=== PATIENT | female | born 1985 | race Caucasian/White ===

== ENCOUNTER 2023-12-04 13:20 | Outpatient (AMB) | payer OTHER, SELFPAY ==
--- NOTE | 2023-12-04 13:25 | A.OFFVIS_ITS ---
VS Expanded 12/04/23 13:38 Height 5 ft 1 in Weight 136 lb 0.403 oz BMI 25.7 Intake Visit Reasons: Fatigue and weightloss/LVM Nutrition Presentation Details: Pt presents for MNT for weight loss and fatigue. The Pt was referred by PCP, Dr. Gautam Pt reports having lost about 15 lbs in 2-3 months. Pt reports this is since t eeth were extracted, does not wear dentures as they feel uncomfortable to her. Pt feels her weight is appropriate and drinks caffeinated beverages 8-12 /day ,(each is 180 calories with carbs and sodium and 100 mg caffeine) Pt reports having reduced from 18 Reports having breads or crackers or chips throughout the day, not having appetite for meals. BS Monitoring Most Recent Diabetes Results: No Data to Display ZDE-Wevwhox-Go.Jeor Equation Height: 5 ft 1 in Weight: 136 lb Resting Metabolic Rate: 1241.60 Calculated Activity Level: Sedentary Calories Needed to Maintain Weight: 1489.92 Diagnosis Nutrition problem #1: malnutrition As related to (etiology) #1: inadeq diet over 5 days As evidenced by (sign/symptom) #1: food recall (Per recall, Pt consuming 1800- 2100 calories from beverages without protein or minimal protein intake) and knowledge deficit of diet Assessment & Plan Assessment & Plan (1) Weight loss: Code(s): R63.4 - Abnormal weight loss Category: Medical Plan: Incorporate beverages with protein, keeping the same amount of calories with increased nutrients. Wt: 61 Kg ( 11/29 ) Est kcal needs as per 25 kcal/kg bwJ: 1800 (40% carb, 30% protein/fat) Est fluid needs as per 25-30 ml/d: 1800 Est prot per day as per 1 g/kg bw: 61 Recommend fiber intake : 8-10 g per day and gradually increase to 25-28 g per day for women and 35-38 g for men or as tolerated Recommend sodium intake per day : less than 2000 mg Educated patient on: ( R = reviewed V = verbalizes understanding N/R = needs review N/A = not applicable * Food sources of carbohydrate, adequate serving sizes and its role in various health conditions: R V N/R * Differences between complex carbohydrates a simple carbohydrates, role of fiber in diet: R V N/R * protein sources of foods: R * Differences between types of fats and role in diet (mono on saturated fat fatty acids, saturated fatty acids, trans fats): R V N/R * Food sources of sodium in salt and healthy modifications for heart health in kidney health: R V R/V * Vitamins and minerals: R V N/R * Healthy plate method concept balancing meals with protein /carbs/fats: R * Physical activity: Benefits a precaution: R V N/R * REviewed lack of nutrients and fatigue Patient Instructions: Incorporate protein as part of your meals/beverages Have a protein shake 1-2 x/day have 1/2 sand with the beverages your are currently having (eggs/cheese/tuna/chicken /sausage) Coding Level of Care Code Nutr Indiv Intake (87482) Diagnoses Weight loss R63.4 Time Spent (min) 30
[2023-12-04 13:38] VITALS: BMI 25.7
[2023-12-11 12:35] VITALS: BMI 25.7
== END 2023-12-04 13:47 | disposition home or self-care (01) ==
LOC: HO.ENCR 13:20
PROVIDERS: PCP Internal Medicine; Visit Provider Dietitian, Registered
DX: R63.4 Abnormal weight loss (principal)

== ENCOUNTER → 2023-12-04 13:20 | Outpatient (BNVA) | payer OTHER, SELFPAY | PROVIDERS: PCP Internal Medicine; Visit Provider Dietitian, Registered | DX: E46 Unspecified protein-calorie malnutrition (principal); R53.83 Other fatigue; R63.4 Abnormal weight loss; Z71.3 Dietary counseling and surveillance | CPT/HCPCS: 97802 ==

== ENCOUNTER 2024-01-15 13:03 | Outpatient (AMB) | payer OTHER, SELFPAY ==
--- NOTE | 2024-01-15 13:08 | A.OFFVIS_ITS ---
VS Expanded 01/15/24 13:09 Height 5 ft 1 in Weight 130 lb 11.746 oz BMI 24.7 Intake Visit Reasons: monitoring/LVM Nutrition Presentation Details: Pt presents for MNT f/u to monitor weight Pt had recent weight loss of 15 lbs in 2-3 months. Pt reports weight loss was related to teeth extraction and choosing soft foods, in gerenal reducing portions. She does not wear dentures as they feel uncomfortable to her. Reports typically having 3-4 cups of coffee /energy beverages per day and drinking sodas with meals BS Monitoring Most Recent Diabetes Results: No Data to Display Assessment & Plan Assessment & Plan (1) Weight loss: Code(s): R63.4 - Abnormal weight loss Category: Medical Plan: Incorporate beverages with protein, keeping the same amount of calories with increased nutrients. Wt: 61 Kg ( 11/29 ) Est kcal needs as per 25 kcal/kg bwJ: 1800 (40% carb, 30% protein/fat) Est fluid needs as per 25-30 ml/d: 1800 Est prot per day as per 1 g/kg bw: 61 Recommend fiber intake : 8-10 g per day and gradually increase to 25-28 g per day for women and 35-38 g for men or as tolerated Recommend sodium intake per day : less than 2000 mg Educated patient on: ( R = reviewed V = verbalizes understanding N/R = needs review N/A = not applicable * Food sources of carbohydrate, adequate serving sizes and its role in various health conditions: R V N/R * Differences between complex carbohydrates a simple carbohydrates, role of fiber in diet: R V N/R * protein sources of foods: R * Differences between types of fats and role in diet (mono on saturated fat fatty acids, saturated fatty acids, trans fats): R V N/R * Food sources of sodium in salt and healthy modifications for heart health in kidney health: R V R/V * Vitamins and minerals: R V N/R * Healthy plate method concept balancing meals with protein /carbs/fats: R * Physical activity: Benefits a precaution: R V N/R * REviewed lack of nutrients and fatigue Patient Instructions: have milk/leo in place of soda with meals replacing soda, 3 times a day Coding Level of Care Code Nutr Indiv Subseq (12597) Diagnoses Weight loss R63.4 Time Spent (min) 25
[2024-01-15 13:09] VITALS: BMI 24.7
== END 2024-01-15 13:31 | disposition home or self-care (01) ==
PROVIDERS: PCP Internal Medicine; Visit Provider Dietitian, Registered
DX: R63.4 Abnormal weight loss (principal)

== ENCOUNTER → 2024-01-15 13:03 | Outpatient (BNVA) | payer OTHER, SELFPAY | PROVIDERS: PCP Internal Medicine; Visit Provider Dietitian, Registered | DX: R63.4 Abnormal weight loss (principal) | CPT/HCPCS: 97803 ==

== ENCOUNTER 2024-03-04 13:29 | Outpatient (AMB) | payer OTHER, SELFPAY ==
[2024-03-04 13:33] VITALS: BMI 24.9
--- NOTE | 2024-03-04 13:33 | A.OFFVIS_ITS ---
VS Expanded 03/04/24 13:33 Height 5 ft 1 in Weight 132 lb 0.91 oz BMI 24.9 Intake Visit Reasons: monitor weight/LVM Nutrition Presentation Details: Pt presents for MNT f/u underweight Pt reports working on having cereal with milk in the evening Tries not to skip meal in the morning but becomes nauseous thus omits Has 3 redbull iper day not on MVI BS Monitoring Most Recent Diabetes Results: No Data to Display Assessment & Plan Assessment & Plan (1) Weight loss: Code(s): R63.4 - Abnormal weight loss Category: Medical Plan: Incorporate beverages with protein, keeping the same amount of calories with increased nutrients. Wt: 61 Kg ( 11/29 ) Est kcal needs as per 25 kcal/kg bwJ: 1800 (40% carb, 30% protein/fat) Est fluid needs as per 25-30 ml/d: 1800 Est prot per day as per 1 g/kg bw: 61 Recommend fiber intake : 8-10 g per day and gradually increase to 25-28 g per day for women and 35-38 g for men or as tolerated Recommend sodium intake per day : less than 2000 mg Educated patient on: ( R = reviewed V = verbalizes understanding N/R = needs review N/A = not applicable * Food sources of carbohydrate, adequate serving sizes and its role in various health conditions: R V N/R * Differences between complex carbohydrates a simple carbohydrates, role of fiber in diet: R V N/R * protein sources of foods: R * Differences between types of fats and role in diet (mono on saturated fat fatty acids, saturated fatty acids, trans fats): R V N/R * Food sources of sodium in salt and healthy modifications for heart health in kidney health: R V R/V * Vitamins and minerals: R V N/R * Healthy plate method concept balancing meals with protein /carbs/fats: R * Physical activity: Benefits a precaution: R V N/R * REviewed lack of nutrients and fatigue Patient Instructions: Have a protein shake once a day (muscle milk ok ) reducing on one redbull per day consider taking a daily multivitamin Coding Level of Care Code Nutr Indiv Subseq (31354) Diagnoses Weight loss R63.4 Time Spent (min) 30
== END 2024-03-04 14:01 | disposition home or self-care (01) ==
PROVIDERS: PCP Internal Medicine; Visit Provider Dietitian, Registered
DX: R63.4 Abnormal weight loss (principal)

== ENCOUNTER → 2024-03-04 13:29 | Outpatient (BNVA) | payer OTHER, SELFPAY | PROVIDERS: PCP Internal Medicine; Visit Provider Dietitian, Registered | DX: R63.4 Abnormal weight loss (principal) | CPT/HCPCS: 97803 ==

== ENCOUNTER 2024-05-06 12:59 | Outpatient (AMB) | payer OTHER, SELFPAY ==
--- NOTE | 2024-05-06 13:01 | A.OFFVIS_ITS ---
VS Expanded 05/06/24 13:02 Height 5 ft 1 in Weight 128 lb 1.417 oz BMI 24.2 Intake Visit Reasons: monitor weight Nutrition Presentation Details: Pt presents for MNT for weight loss. Pt reports having symptoms of diarrhea for the past month, and cannot tell what is causing it. Pt reports needing to make appt with PCP to f/u on this Pt denies taking laxatives Meals that she may have nothing in AM , but has redbulls or juice (reports having 2-3 redbull/day and having juices throghout the day meals in the evening varies: chicken parm and pasta or shepherds pie or rice/chicken and vegetable, water or juice snacks: plain crackers or cereal, chips taking MIV - no Meds: seboxeme monthly prestique daily omeprazole daily BS Monitoring Most Recent Diabetes Results: No Data to Display Assessment & Plan Assessment & Plan (1) Weight loss: Code(s): R63.4 - Abnormal weight loss Category: Medical Plan: incorporate protein with the snacks , continue working on having nutrient dense beverages Wt: 61 Kg ( 11/29 ) Est kcal needs as per 25 kcal/kg bwJ: 1800 (40% carb, 30% protein/fat) Est fluid needs as per 25-30 ml/d: 1800 Est prot per day as per 1 g/kg bw: 61 Recommend fiber intake : 8-10 g per day and gradually increase to 25-28 g per day for women and 35-38 g for men or as tolerated Recommend sodium intake per day : less than 2000 mg Educated patient on: ( R = reviewed V = verbalizes understanding N/R = needs review N/A = not applicable * Food sources of carbohydrate, adequate serving sizes and its role in various health conditions: R V N/R * Differences between complex carbohydrates a simple carbohydrates, role of fiber in diet: R V N/R * protein sources of foods: R * Differences between types of fats and role in diet (mono on saturated fat fatty acids, saturated fatty acids, trans fats): R V N/R * Food sources of sodium in salt and healthy modifications for heart health in kidney health: R V R/V * Vitamins and minerals: R V N/R * Healthy plate method concept balancing meals with protein /carbs/fats: R * Physical activity: Benefits a precaution: R V N/R * REviewed lack of nutrients and fatigue Patient Instructions: Add protein to the foods you have: example - crackers with tuna or chicken or egg salad or ham/cheese - chocolate with yogurt - chips with chicken salad or tuna salad or peanut butter Keep hydrated by having soups/broth, juices to keep hydrated Coding Level of Care Code Nutr Indiv Subseq (32366) Diagnoses Weight loss R63.4 Time Spent (min) 30
[2024-05-06 13:02] VITALS: BMI 24.2
--- OUTSIDE RECORDS SUMMARY | 2024-05-06 15:07 | XMS_ITS | Patient Health Record ---
[facility] Organization [facility] Address [address] [place] [address] Support Name Relationship Address Phone Dain Mac Emergency Contact [address] [place] [address] Kennsincere Linda Guarantor Unknown Reason For Referral No Information Medications Medication SIG (Take, Route, Frequency, Duration) Notes Start Date End Date Status Gabapentin 300 MG 120 Oral take 1caps for 5nights increase by 1 cap every 5nights until 4caps at nights thereafter for 30 06/23/[address] 60 MG CAP 30 1 po qam for 30 *please review for potential update for e-prescription and drug interaction check* 06/16/2013 Active SUMAVEL DOSEPRO 6 MG/0.5 ML 6 Inject 1 dose q2h prn severe migraine, limit 2 in 24 hours. for 30 *please review for potential update for e-prescription and drug interaction check* 06/16/2013 Active Plan Of Treatment No Information Insurance Providers Payer Name Payer Address Payer Phone Subscriber Number Group Number Insured Name Patient Relationship to Insured Coverage Start Date Coverage End Date [facility] [address] [id number] Linda Nicole Self - patient is the insured Medical (General) History Surgical History Surgery Date(Month/Year) The patient has had no prior surgeries The patient has had no prior surgeries 2013-06-16
--- OUTSIDE RECORDS SUMMARY | 2024-05-06 15:07 | XMS_ITS | Clinical Summary ---
Author Organization [address] Address [address] [place] [phone] Phone Care Team Providers Care Agricultural Appraiser Name Role Phone Bubba Gautam MD Primary Care Provider [phone] Allergies Active Allergy Reactions Criticality Noted Date Comments Amoxicillin Itching 11/04/2009 Azithromycin Wheezing 10/26/2009 Other Reaction(s): OTHER CHEST TIGHTNESS,ABDOMINAL CRAMPS Medications Medication Sig Dispensed Refills Start Date End Date Status desvenlafaxine 50 mg tablet extended release 24 hr Take 50 mg by mouth daily. Active lithium 150 mg capsule TAKE 1 CAPSULE BY MOUTH EVERY NIGHT AT BEDTIME. 11/29/2023 Active nicotine (NICODERM CQ) 21 mg/24 hr APPLY 1 PATCH EVERY DAY BY TRANSDERMAL ROUTE FOR 28 DAYS. 08/20/2023 Active nicotine polacrilex (COMMIT) 4 mg lozenge TAKE 1 LOZENGE BY MOUTH EVERY 2 HOURS 08/20/2023 Active buprenorphine-n aloxone (Suboxone) 8-2 mg per SL film TAKE 2 FILMS SUBLINGUALLY EVERY DAY 11/22/2020 Active SUMAtriptan (IMITREX) 50 mg tablet May repeat dose once after 2 hours, if needed. 06/27/2023 Active omeprazole (PriLOSEC) [address] capsule TAKE 1 CAPSULE BY MOUTH DAILY FOR 360 DAYS. 90 capsule 05/03/2024 Active omeprazole (PriLOSEC) [address] capsule Take 1 Capsule by mouth daily for 360 days. 12/06/2023 Discontinued Active Problems Problem Noted Date Diagnosed Date Chronic constipation 11/30/2016 Migraine 08/16/2008 Overview (03/04/2024): 08/24/19 pt states she was on imitrex and percocet but discontinued both with +HPT Last Assessment & Plan: Explained some women have improvement in , others not. She will continue prn Tylenol. Rx sent for Phenergan to be used sparingly prn. Counseled not to use with driving as can cause significant sedation. Best to take QHS prn. She agreed. Tobacco use disorder 12/03/2006 Overview (03/04/2024): 08/24/19 pt is cutting down from a 1PPD habit to 1/2 PPD habit Last Assessment & Plan: Encouraged cessation. Discussed risks of abruption, IUFD, IUGR. She will try. Immunizations Name Administration Dates Next Due DTP 07/10/1993, 2,08/06/1990,1987,04/08/1987 H1N1 Inj Preservative Free 03/23/2009 HPV, Quadrivalent 01/09/2007,08/30/2006,07/09/19 07 Hepatitis B (Bzvvidt-H-Yrutd , Recombivax HB-Adult) 19yo and older 07/07/1998,12/24/1997,11/25/1997 HiB 11/06/1990 Influenza trivalent, 0.5mL, preservative free (Fluarix; FluLaval; Fluzone) ages 6mo and older (Afluria) 3 years and older 12/30/2014,01/10/2012,01/08/2011,2009,12/26/2007,03/28/2006,02/10/2005 Influenza, Unspecified 01/03/2018,02/01/2016 MMR, measles mumps and rubel la Live (Priorix; M-M-R II) 12mo and older 11/06/1997,08/06/1990 OPV 07/10/1993, 2,08/06/1990,1987,04/08/1987 Td Tetanus diptheria (Tdvax) 7yo and older 11/25/1997 Tdap Tetanus diptheria acell ular pertussis (Boostrix; Adacel) 7yo and older 09/16/2014,09/12/2009 Varicella live (Varivax) 12m o and older 04/08/1990 Surgical History Surgery Date Site/Laterality Comments FLEXIBLE SIGMOIDOSCOPY 01/06/2007 PROCEDURE: MT SIGMOIDOSCOPY FLX DX W/COLLJ SPEC BR/WA IF PFRMD; COMMENT: internal and external hemorrhoids CERVICAL BIOPSY W/ LOOP ELECTRODE EXCISION 07/10/2012 PROCEDURE: MT CONIZATION CERVIX W/WO D&C RPR ELTRD EXC; COMMENT: VALDO 3 Medical History Medical History Date Comments Abnormal Pap smear of cervix DX: Abnormal Pap smear of cervix Genital HSV DX:Genital HSV Chronic constipation 11/30/2016 DX:Chronic constipation Atypical chest pain 06/01/2014 DX:Atypical chest pain 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 Pap smears normal after that until HGSIL again 2012. Colpo 06/02/12 - VALDO 3, LEEP done 07/10/2012. Pap 01/29/13: negative ECC done 03/17/13 - negative. Repeat pap in 6 months, was done 04/2013 and normal. Family History Medical History Relation Name Comments Cirrhosis Father hepatitis/EtOH abuse Heart attack Maternal Grandfather Suicide Attempts Maternal Grandmother Breast cancer Mother age 40's/unila teral; skin cancer (?type); depression Heart attack Paternal Grandfather Other: COVID-19 Paternal Grandmother Other: PCOS Sister x 3 brain cysts? Relation Name Status Comments Father Maternal Grandfather Maternal Grandmother Mother Alive Paternal Grandfather Paternal Grandmother Sister x 3 Alive Social History Tobacco Use Types Packs/Day Years Used Date Smoking Tobacco: Every Day Smokeless Tobacco: Current Alcohol Use Standard Drinks/Week Comments No 0 (1 standard drink = 0.6 oz pur e alcohol) Sex and Gender Information Value Date Recorded Sex Assigned at Not on file Gender Identity Not on file Sexual Orientation Not on file Job Start Date Occupation Industry Not on file Not on file Not on file Obstetrics History Last Filed Vital Signs Vital Sign Reading Time Taken Comments Blood Pressure 88/62 12/06/2023 1:23 PM EDT Pulse 97 12/06/2023 1:23 PM EDT Temperature - - Respiratory Rate - - Oxygen Saturation - - Inhaled Oxygen Concentration - - Weight 61.6 kg (135 lb 14.4 oz) 12/06/2023 1:23 PM EDT Height 154.9 cm (5' 1 ) 08/08/2023 10:3 4 AM EDT Body Mass Index 25.68 08/08/2023 10:34 AM EDT Plan of Treatment Health Maintenance Due Date Last Done Comments Pneumococcal Vaccine: Pediatrics (0 to 5 Years) and At-Risk Patients (6 to 64 Years) (1 of 2 - PCV) 1992 Social Influencers of Health Screening 03/11/2022 Cervical Cancer Screening: HPV 08/02/2023 08/01/2018 COVID-19 Vaccine ( season) 2023 Influenza Vaccine (#1) 2023 8, 02/01/2016, 12/30/2014, Additional history exists DTaP,Tdap,and Td Vaccines (8 - Td or Tdap) 09/16/2024 09/16/2014, 09/12/2009, 11/25/1997, Additional history exists Depression Screening 12/05/2024 12/06/2023 Cholesterol Screening (Lipid Panel) 06/27/2028 06/28/2023 Varicella Vaccines Aged Out 04/08/1990 No longer eligible based on patient's age to complete this topic HIB Vaccines Completed 11/06/1990, 11/06/1990 IPV Vaccines Completed 07/10/1993, 01/07, 11/06/1990, Additional history exists MMR Vaccines Completed 11/06/1997, 08/06/1990 Hepatitis B Vaccines Completed 07/07/1998, 12/24/1997, 11/25/1997 HPV Vaccines Completed 01/09/2007, 08/07, 07/08/2006 HIV Screening Completed 08/27/2019 Hepatitis C Screening Completed 08/27/2019 Hepatitis A Vaccines Aged Out No long er eligible based on patient's age to complete this topic Meningococcal ACWY Vaccine Aged Out N o longer eligible based on patient's age to complete this topic RSV Immunization Patients Under 20 months Aged Out No longer eligible based on patient's age to complete this topic Procedures Procedure Name Priority Date/Time Associated Diagnosis Comments HM DEPRESSION SCREENING Routine 12/06/2023 LIPID PANEL Routine 06/28/2023 HEPATITIS C SCREENING Routine 08/27/2019 HIV SCREENING Routine 08/27/2019 HPV Routine 08/01/2018 from Last 3 Months or Most Recently Relevant to Health Maintenance Results * Depression Screening (12/06/2023) Pathologist [facility] Depression Screening Abstracted Historical Provider MD YOLANDA Sin * (ABNORMAL) Lipid panel (06/28/2023) [facility] LDL/HDL Ratio 7(A) 0 - 4 Triglycerides 116 0 - 150 mg/dL Cholesterol 233(A) 0 - 200 mg/dL HDL 32(A) 40 mg/dL LDL Cholesterol 178(A) 0 - 100 mg/dL Blood Venous blood specimen / Unknown Historical Provider LAB BLOOD ORDERAB LES * HIV Screening (08/27/2019) Pathologist [facility] HIV Screening Abstracted Historical Provider MD YOLANDA VALDEZ E * Hepatitis C Screening (08/27/2019) Pathologist [facility] Hepatitis C Screening Abstracted Historical Provider MD YOLANDA VALDEZ E * Cervical Cancer Screening: HPV (08/01/2018) Pathologist [facility] Cervical Cancer Screening: HPV Abstracted ,Negative Historical Provider MD YOLANDA Sin from Last 3 Months or Most Recently Relevant to Health Maintenance Care Teams Agricultural Appraiser Relationship Specialty Start Date End Date Bubba Gautam MD [address] [place] [id number] PCP - General 01/15/06
== END 2024-05-06 13:29 | disposition home or self-care (01) ==
PROVIDERS: PCP Internal Medicine; Visit Provider Dietitian, Registered
DX: R63.4 Abnormal weight loss (principal)

== ENCOUNTER → 2024-05-06 12:59 | Outpatient (BNVA) | payer OTHER, SELFPAY | PROVIDERS: PCP Internal Medicine; Visit Provider Dietitian, Registered | DX: R63.4 Abnormal weight loss (principal); Z71.3 Dietary counseling and surveillance | CPT/HCPCS: 97803 ==

== ENCOUNTER 2024-06-04 13:02 | Outpatient (AMB) | payer OTHER, SELFPAY ==
--- NOTE | 2024-06-04 13:04 | A.OFFVIS_ITS ---
VS Expanded 06/04/24 13:11 Height 5 ft 1 in Weight 127 lb 13.89 oz BMI 24.2 Intake Visit Reasons: monitor weight Nutrition Presentation Details: Pt presents for MNT f/u for weight loss Pt reports continuing to have 2pack a day of cigarette , + weed Reports working on increasing food intake b:likes oatmeal makes it with water L: sandwich with chips, red bull d: spaghetti/meatballs , juice has not had the protein shakes as of yet Pt reports recently dx with COPD BS Monitoring Most Recent Diabetes Results: No Data to Display Assessment & Plan Assessment & Plan (1) Weight loss: Code(s): R63.4 - Abnormal weight loss Category: Medical Plan: incorporate protein with the snacks , continue working on having nutrient dense beverages Wt: 61 Kg ( 11/29 ), 58 kg (06/02) Est kcal needs as per 25 kcal/kg bwJ: 1800 (40% carb, 30% protein/fat) Est fluid needs as per 25-30 ml/d: 1800 Est prot per day as per 1 g/kg bw: 61 Recommend fiber intake : 8-10 g per day and gradually increase to 25-28 g per day for women and 35-38 g for men or as tolerated Recommend sodium intake per day : less than 2000 mg Educated patient on: ( R = reviewed V = verbalizes understanding N/R = needs review N/A = not applicable * Food sources of carbohydrate, adequate serving sizes and its role in various health conditions: R V N/R * Differences between complex carbohydrates a simple carbohydrates, role of fiber in diet: R V N/R * protein sources of foods: R * Differences between types of fats and role in diet (mono on saturated fat fatty acids, saturated fatty acids, trans fats): R V N/R * Food sources of sodium in salt and healthy modifications for heart health in kidney health: R V R/V * Vitamins and minerals: R V N/R * Healthy plate method concept balancing meals with protein /carbs/fats: R * Physical activity: Benefits a precaution: R V N/R * REviewed lack of nutrients and fatigue Patient Instructions: * make hot cereals with whole milk instead of water * Have milkshake (1 c whole milk with peanut butter and ice cream ) once a day in addition to your meals * Contiue working on including protein in your meals /snacks and choosing nutrient dense beverages (milk, juices, shakes) Coding Level of Care Code Nutr Indiv Subseq (58336) Diagnoses Weight loss R63.4 Time Spent (min) 20
[2024-06-04 13:11] VITALS: BMI 24.2
--- OUTSIDE RECORDS SUMMARY | 2024-06-04 15:32 | XMS_ITS | Encounter Summary ---
Author Organization [facility] Address [id number] [place] [phone] Care Team Providers Care Home Health Nurse Name Role Phone Bubba Gautam MD Primary Care Provider [phone] Reason for Referral * Imaging (Routine) - Closed Specialty Diagnoses / Procedures Referred By Esme henriquez Referred To Contact Radiology Diagnoses Weight loss Lower abdominal pain Procedures CT Abdomen Pelvis wo Contrast Lisbeth Olvera PA [address] [place] [address] Phone: tel: fax: CT Scan - [address] Phone: tel: fax: Referral ID Status Reason Start Date Expiration Date Visits Re quested Visits Authorized [id number] Closed 05/12/2024 07/11/2024 1 1 Reason for Visit * Imaging (Routine) - Closed Specialty Diagnoses / Procedures Referred By Esme henriquez Referred To Contact Radiology Diagnoses Weight loss Lower abdominal pain Procedures CT Abdomen Pelvis wo Contrast Lisbeth Olvera PA [address] [place] [address] Phone: tel: fax: CT Scan - [address] Phone: tel: fax: Referral ID Status Reason Start Date Expiration Date Visits Re quested Visits Authorized [id number] Closed 05/12/2024 07/11/2024 1 1 Encounter Details Date Type Department Care Team (Latest Contact Info) Description 05/18/2024 11:30 AM EST - 05/18/2024 11:59 PM [facility] Hospital [place] [phone] Weight loss; Lower abdominal pain Discharge Disposition: Home or Self Care Social History Tobacco Use Types Packs/Day Years Used Date Smoking Tobacco: Every Day Smokeless Tobacco: Current Alcohol Use Standard Drinks/Week Comments No 0 (1 standard drink = 0.6 oz pur e alcohol) Housing Instability Answer Date Recorde d Are you worried that in the next 2 months you may not have stable housing? No 05/08/2024 Food Access & Nutrition Answer Date Rec orded Do you have access to a vari ety of food including fruits and vegetables? Yes 05/08/2024 Access to Healthcare Answer Date Record ed Within the last 3 months, ho w many times did you visit the emergency department for your medical care? 0 05/08/2024 Health Literacy Answer Date Recorded How often do you need to hav e someone help you when you read instructions, pamphlets, or other written material from your doctor or pharmacy? Never 05/08/2024 Caregiver: How often do you need to have someone help you when you read instructions, pamphlets, or other written material from your doctor or pharmacy? Not on file 05/08/2024 Financial Risk Answer Date Recorded How hard is it for you to pa y for the very basics like food, housing, medical care, and air conditioning / heating? Not very hard 05/08/2024 Transportation Answer Date Recorded Has the lack of transportati on kept you from meetings, work, or from getting things needed for daily living? No Has the lack of transportati on kept you from medical appointments or from getting medications? No 05/08/2024 Social Isolation Answer Date Recorded How often do you feel lonely or isolated from th ose around you? Never 05/08/2024 Food Risk Answer Date Recorded Within the past 12 months we worried whether our food would run out before we got money to buy more. Never true 05/08/2024 Within the past 12 months th e food we bought just didn't last and we didn't have money to get more. Never true 05/08/2024 Dependent Care Answer Date Recorded Do you need help finding or paying for care for your loved ones. For example, child development teacher or elderly care for an older adult? No 05/08/2024 Education Answer Date Recorded Do you think completing more education or training, like finishing a GED, going to college, or learning a trade, would be helpful for you? No 05/08/2024 Employment and Income Answer Date Recor ded During the last four weeks, have you been actively looking for work? No 05/08/2024 Living Situation Answer Date Recorded What is your living situation? 0 05/08/2024 Comments Unknown Sex and Gender Information Value Date Recorded Sex Assigned at Not on file Legal Sex Female 4:40 AM EST Gender Identity Not on file Sexual Orientation Not on file documented as of this encounter Medications at Time of Discharge buprenorphine-na loxone (Suboxone) 8-2 mg per SL film TAKE 2 FILMS SUBLINGUALLY EVERY DAY 11/22/2020 desvenlafaxine 50 mg tablet extended release 24 hr Take 50 mg by mouth daily. omeprazole (PriLOSEC) [address] capsule TAKE 1 CAPSULE BY MOUTH DAILY FOR 360 DAYS. 90 capsule 05/03/2024 ergocalciferol (VITAMIN D-2) 1,250 mcg (50,000 unit) capsule Take 1 capsule (50,000 Units total) by mouth 1 (one) time per week. 12 capsule 05/08/2024 SUMAtriptan (IMITREX) 50 mg tablet May repeat dose once after 2 hours, if needed. 06/27/2023 5 documented as of this encounter Discharge Disposition Disposition Code Departure Means Destination Home or Self Care documented in this encounter Plan of Treatment Upcoming Encounters Date Type Department Care Team (Late st Contact Info) Description 06/08/2024 11:30 AM EST Ancillary Procedure Pulmonolgy - [address] [phone] Christine Morales 06/09/2024 3:20 PM EST Office Visit Gastroenterology - [address] [phone] Mary Marin, [facility] [address] [address] 06/11/2024 10:00 AM EST Consult Pulmonolgy - [place] [address] [phone] Larissa Cox MD [address] [address] 06/30/2024 3:30 PM EDT Appointment Radiology Department - [address] [phone] 07/07/2024 11:30 AM EDT Office Visit Adult Medicine [address] [phone] Nikky Arredondo PA [address] [place] [address] documented as of this encounter Procedures Procedure Name Priority Date/Time Associated Diagnosis Comments CT ABDOMEN PELVIS WO CONTRAST Routine 05/18/2024 11:41 AM EST Weight loss Lower abdominal pain documented in this encounter Results * CT Abdomen Pelvis wo Contrast (05/18/2024 11:41 AM EST) Anatomical Region Laterality Modality Body Computed Tomogra phy 05/18/2024 12:3 2 PM EST Impressions 05/18/2024 11:52 PM EST Bilateral poorly defined centrilobular groundglass pulmonary nodules which can be seen with respiratory bronchiolitis. ??Hypersensitivity pneumonitis included in the differential. Few stable small bilateral pulmonary nodules. No evidence of an acute abdominal or pelvic process. 3.6 cm right ovarian cyst is probably physiologic. ??Recommend follow-up pelvic ultrasound in 6-8 weeks. POS - [id number] -------- FINAL REPORT -------- Dictated By: Sangita Ludwig Dictated Date: 05/18/2024 12:32 ET Assigned Physician: Sangita Ludwig Reviewed and Electronically Signed By: Sangita Ludwig Signed Date: 05/18/2024 23:52 ET Workstation ID: [id number] Transcribed By: Self Edit Transcribed Date: 05/18/2024 14:02 ET Narrative 05/18/2024 11:52 PM EST EXAM: CT chest, abdomen, and pelvis HISTORY: Cough, weight loss, abdominal pain. ??History of tobacco use. ??Nondiagnostic x-ray. COMPARISON: CT chest, abdomen, and pelvis 05/16/2020 TECHNIQUE: CT of the chest, abdomen, and pelvis with oral and without intravenous contrast. Coronal and sagittal reformatted images were generated. The radiation dose total CTDIvol: 9.1 mGy. FINDINGS: Limited assessment of solid organs without IV contrast. ?? CT CHEST: Lungs/pleura: Lungs are hyperinflated. ??Mild centrilobular emphysema. ??Bilateral upper lobe predominant subtle poorly defined centrilobular groundglass nodules. ??Stable 5 x 5 mm nodule in the right middle lobe image 169 and stable 4 mm nodule along the inferior left major fissure image 202. ??No new nodule detected. ??No mass or infiltrate. ??Trachea and central airways are patent. ??No pleural effusions. Lymph nodes/mediastinum: Sensitivity for lymphadenopathy is limited without IV contrast. ??Subcentimeter mediastinal lymph nodes. ??No definite enlarged hilar lymph nodes. ??Stable soft tissue density in the anterior mediastinum which likely represents remnant thymic tissue. Cardiovascular: Heart is not enlarged. ??No pericardial effusion. No thoracic aortic aneurysm. Soft tissues: Thyroid gland is not enlarged. No esophageal abnormality. Bones: Mild degenerative changes in the spine. ??Multilevel endplate Schmorl's nodes. ??No destructive bone lesion. CT ABDOMEN AND PELVIS: Liver: No abnormality detected. Gallbladder/biliary tree: No calcified gallstones or pericholecystic inflammatory change. ??No biliary ductal dilatation. Spleen: No abnormality detected. Pancreas: No abnormality detected. Adrenal glands: No masses. Kidneys/ureters: ??No hydronephrosis or perinephric fat stranding. ??No renal stones. ??No definite ureteral stones. Vasculature: No abdominal aortic aneurysm. ?? Peritoneum: No evidence of free intraperitoneal air, free fluid, or organized collection. Lymph nodes: No lymphadenopathy detected. Bowel: No evidence of a bowel obstruction. ??No bowel inflammatory changes. ??Normal appendix. Body wall: Small fat-containing umbilical hernia which is partially obscured by streak artifact from umbilical jewelry. ??Nodular soft tissue densities and a few foci of subcutaneous emphysema in the subcutaneous tissues of the anterior abdominal wall, likely related to medication injection sites. Bladder: Decompressed, which limits assessment. Reproductive: No definite uterine abnormality. ??Right ovarian cyst measuring up to 3.6 cm. ??No left adnexal abnormality identified. Bones: No compression deformities. Spina bifida occulta of T12 and L1 again noted. ??No destructive bone lesion. Procedure Note Sangita Ludwig MD - 05/18/2024 EXAM: CT chest, abdomen, and pelvis HISTORY: Cough, weight loss, abdominal pain. History of tobacco use.Nondiagnostic x-ray. COMPARISON: CT chest, abdomen, and pelvis 05/16/2020 TECHNIQUE: CT of the chest, abdomen, and pelvis with oral and withoutintravenous contrast. Coronal and sagittal reformatted images weregenerated. The radiation dose total CTDIvol: 9.1 mGy. FINDINGS: Limited assessment of solid organs without IV contrast. CT CHEST: Lungs/pleura: Lungs are hyperinflated. Mild centrilobular emphysema.Bilateral upper lobe predominant subtle poorly defined centrilobulargroundglass nodules. Stable 5 x 5 mm nodule in the right middle lobeimage 169 and stable 4 mm nodule along the inferior left major fissureimage 202. No new nodule detected. No mass or infiltrate. Trachea andcentral airways are patent. No pleural effusions. Lymph nodes/mediastinum: Sensitivity for lymphadenopathy is limitedwithout IV contrast. Subcentimeter mediastinal lymph nodes. No definiteenlarged hilar lymph nodes. Stable soft tissue density in the anteriormediastinum which likely represents remnant thymic tissue. Cardiovascular: Heart is not enlarged. No pericardial effusion. Nothoracic aortic aneurysm. Soft tissues: Thyroid gland is not enlarged. No esophageal abnormality. Bones: Mild degenerative changes in the spine. Multilevel endplateSchmorl's nodes. No destructive bone lesion. CT ABDOMEN AND PELVIS: Liver: No abnormality detected. Gallbladder/biliary tree: No calcified gallstones or pericholecysticinflammatory change. No biliary ductal dilatation. Spleen: No abnormality detected. Pancreas: No abnormality detected. Adrenal glands: No masses. Kidneys/ureters: No hydronephrosis or perinephric fat stranding. Norenal stones. No definite ureteral stones. Vasculature: No abdominal aortic aneurysm. Peritoneum: No evidence of free intraperitoneal air, free fluid, ororganized collection. Lymph nodes: No lymphadenopathy detected. Bowel: No evidence of a bowel obstruction. No bowel inflammatory changes.Normal appendix. Body wall: Small fat-containing umbilical hernia which is partiallyobscured by streak artifact from umbilical jewelry. Nodular soft tissuedensities and a few foci of subcutaneous emphysema in the subcutaneoustissues of the anterior abdominal wall, likely related to medicationinjection sites. Bladder: Decompressed, which limits assessment. Reproductive: No definite uterine abnormality. Right ovarian cystmeasuring up to 3.6 cm. No left adnexal abnormality identified. Bones: No compression deformities. Spina bifida occulta of T12 and [id number] noted. No destructive bone lesion. IMPRESSION: Bilateral poorly defined centrilobular groundglass pulmonary nodules whichcan be seen with respiratory bronchiolitis. Hypersensitivity pneumonitisincluded in the differential. Few stable small bilateral pulmonary nodules. No evidence of an acute abdominal or pelvic process. 3.6 cm right ovarian cyst is probably physiologic. Recommend follow-uppelvic ultrasound in 6-8 weeks. POS - [id number] -------- FINAL REPORT -------- Dictated By: Sangita Ludwig Dictated Date: 05/18/2024 12:32 ET Assigned Physician: Sangita Ludwig Reviewed and Electronically Signed By: Sangita Ludwig Signed Date: 05/18/2024 23:52 ET Workstation ID: [id number] Transcribed By: Self Edit Transcribed Date: 05/18/2024 14:02 ET us Lisbeth Wade ETIENNE IMG CT PROCEDURES Final Result documented in this encounter Visit Diagnoses Diagnosis Weight loss Loss of weight Lower abdominal pain Abdominal pain, other specified site documented in this encounter Care Teams Home Health Nurse Relationship Specialty Start Date End Date Bubba Gautam MD [address] [place] [id number] PCP - General 01/15/06 documented as of this encounter
--- OUTSIDE RECORDS SUMMARY | 2024-06-04 15:32 | XMS_ITS | Clinical Summary ---
Author Organization [facility] [address] [place] [address] [place] [phone] Phone Care Team Providers Care Collar Runner Name Role Phone Bubba Gautam MD Primary Care Provider [phone] Allergies Active Allergy Reactions Criticality Noted Date Comments Amoxicillin Itching 11/04/2009 Azithromycin Wheezing 10/26/2009 Other Reaction(s): OTHER CHEST TIGHTNESS,ABDOMINAL CRAMPS Medications desvenlafaxin e 50 mg tablet extended release 24 hr Take 50 mg by mouth daily. Active buprenorphine -naloxone (Suboxone) 8-2 mg per SL film TAKE 2 FILMS SUBLINGUALLY EVERY DAY 11/23/19 21 Active omeprazole (PriLOSEC) [address] capsule TAKE 1 CAPSULE BY MOUTH DAILY FOR 360 DAYS. 90 capsule 05/03/19 25 Active ergocalcifero l (VITAMIN D-2) 1,250 mcg (50,000 unit) capsule TAKE 1 CAPSULE (50,000 UNITS TOTAL) BY MOUTH ONCE WEEKLY 12 capsule 05/26/19 25 Active SUMAtriptan (IMITREX) 50 mg tablet Take 1 tablet (50 mg total) by mouth if needed for migraine (MAY REPEAT DOSE AFTER 2 HOURS, IF NEEDED.). 7 tablet 5 05/27/19 25 Active lithium 150 mg capsule TAKE 1 CAPSULE BY MOUTH EVERY NIGHT AT BEDTIME. 11/29/19 24 025 Discontinued(P atient Discharge) nicotine (NICODERM CQ) 21 mg/24 hr APPLY 1 PATCH EVERY DAY BY TRANSDERMAL ROUTE FOR 28 DAYS. 08/20/19 24 025 Discontinued(P atient Discharge) nicotine polacrilex (COMMIT) 4 mg lozenge TAKE 1 LOZENGE BY MOUTH EVERY 2 HOURS 08/20/19 24 025 Discontinued(P atient Discharge) SUMAtriptan (IMITREX) 50 mg tablet May repeat dose once after 2 hours, if needed. 06/27/19 24 025 Discontinued ergocalcifero l (VITAMIN D-2) 1,250 mcg (50,000 unit) capsule Take 1 capsule (50,000 Units total) by mouth 1 (one) time per week. 12 capsule 05/08/19 25 025 Discontinued Active Problems Problem Noted Date Diagnosed [...] of abruption, IUFD, IUGR. She will try. Encounters Date Type Department Care Team Description 05/18/2024 11:34 AM EST - 05/18/2024 11:59 PM [facility] Hospital Encounter CT Scan - [address] [phone] Weight loss; Chronic cough; Tobacco use disorder Discharge Disposition: Home or Self Care 05/18/2024 11:30 AM EST - 05/18/2024 11:59 PM EST Hospital Encounter CT Scan - [address] [phone] Weight loss; Lower abdominal pain Discharge Disposition: Home or Self Care 05/08/2024 12:45 PM EST Office Visit Adult Medicine [address] [phone] Lisbeth Olvera PA Weight loss (Primary Dx); Chronic cough; Tobacco use disorder; Vitamin D deficiency; Lower abdominal pain; Diarrhea, unspecified type; Chalazion left lower eyelid from Last 3 Months Immunizations Name Administration Dates Next Due DTP 07/10/1993, 2,08/06/1990,1987,04/08/1987 H1N1 Inj Preservative Free 03/23/2009 HPV, Quadrivalent 01/09/2007,08/30/2006,07/09/19 07 Hepatitis B (Zmjbocn-G-Oscjk , Recombivax HB-Adult) 19yo and older 07/07/1998,12/24/1997,11/25/1997 [...] Date Site/Laterality Comments FLEXIBLE SIGMOIDOSCOPY 01/06/2007 PROCEDURE: IL SIGMOIDOSCOPY FLX DX W/COLLJ SPEC BR/WA IF PFRMD; COMMENT: internal and external hemorrhoids CERVICAL BIOPSY W/ LOOP ELECTRODE EXCISION 07/10/2012 PROCEDURE: IL CONIZATION CERVIX W/WO D&C RPR ELTRD EXC; [...] Smoking Tobacco: Every Day Smokeless Tobacco: Current Tobacco Cessation:Ready to Q uit: Not Asked; Counseling Given: Not Answered Alcohol Use Standard Drinks/Week Comments No 0 [...] for your loved ones. For example, child care cook or elderly care for an older adult? [...] on file Sexual Orientation Not on file Obstetrics History Last Filed Vital Signs Vital Sign Reading Time Taken Comments Blood Pressure 100/60 05/08/2024 1:14 PM EST Pulse 106 05/08/2024 1:14 PM EST Temperature 36.4 ??C (97.6 ??F) 05/08/2024 1:14 PM ES T Respiratory Rate 15 05/08/2024 1:14 PM EST Oxygen Saturation - - Inhaled Oxygen Concentration - - Weight 57.8 kg (127 lb 6.4 oz) 05/08/2024 1:14 P M EST Height 154.9 cm (5' 1 ) 05/08/2024 1:14 PM EST Body Mass Index 24.07 05/08/2024 1:14 PM EST Plan of Treatment Upcoming Encounters Date Type Department Care Team (Late st Contact Info) Description 06/08/2024 11:30 AM EST Ancillary Procedure Pulmonolgy - [place] [address] [phone] Andrew Christine 06/09/2024 3:20 PM EST Office Visit Gastroenterology - [address] [phone] Mary Marin NP [address] [address] 06/11/2024 10:00 AM EST Consult Pulmonolgy [address] [phone] Larissa Cox MD [address] [address] 06/30/2024 3:30 PM EDT Appointment Radiology Department - [address] [phone] 07/07/2024 11:30 AM EDT Office Visit Adult Medicine [address] [phone] Nikky Arredondo PA [address] [place] [address] Health Maintenance Due Date Last Done Comments Pneumococcal Vaccine: Pediatrics (0 to 5 Years) and At-Risk Patients (6 to 64 Years) (1 of 2 - PCV) 2005 Cervical Cancer Screening: HPV 08/02/2023 08/01/2018 COVID-19 Vaccine (1 - season) 2023 Influenza Vaccine (#1) 2023 8, 01/23/2017, 02/01/2016, Additional history exists DTaP,Tdap,and Td Vaccines (8 - Td or Tdap) 09/16/2024 09/16/2014, 09/12/2009, 11/25/1997, Additional history exists Depression Screening 12/05/2024 12/06/2023 Social Influencers of Health Screening 05/08/2025 05/08/2024 Cholesterol Screening (Lipid Panel) 06/27/2028 06/28/2023 Varicella Vaccines Aged Out 04/08/1990 No longer eligible based on patient's age to complete this topic HIB Vaccines Completed 11/06/1990, 11/06/1990 IPV Vaccines Completed 07/10/1993, 01/07, 11/06/1990, Additional history exists MMR Vaccines Completed 11/06/1997, 08/06/1990 Hepatitis B Vaccines Completed 07/07/1998, 12/24/1997, 11/25/1997 HPV Vaccines Completed 01/09/2007, 08/07, 07/08/2006 HIV Screening Completed 05/08/2024, 08/27/2019 Hepatitis C Screening Completed 05/08/2024, 020 Hepatitis A Vaccines Aged Out No long er eligible based on patient's age to complete this topic Meningococcal ACWY Vaccine Aged Out N o longer eligible based on patient's age to complete this topic Meningococcal B Vacine Aged Out No lo nger eligible based on patient's age to complete this topic RSV Immunization Patients Under 20 months Aged Out No longer eligible based on patient's age to complete this topic Procedures Procedure Name Priority Date/Time Associated Diagnosis Comments CT ABDOMEN PELVIS WO CONTRAST Routine 05/18/2024 11:41 AM EST Weight loss Lower abdominal pain CT CHEST WO CONTRAST Routine 05/18/2024 11:40 AM EST Weight loss Chronic cough Tobacco use disorder CBC WITH AUTO DIFFERENTIAL Routine 05/08/2024 2:16 PM EST Weight loss HIV 1, 2 ANTIBODY, P24 ANTIGEN WITH REFLEX TO DIFFERENTIATION Routine 05/08/2024 2:16 PM EST Weight loss VITAMIN D 25 HYDROXY Routine 05/08/2024 2:16 PM EST Vitamin D deficiency CBC AND DIFFERENTIAL Routine 05/08/2024 2:16 PM EST Weight loss COMPREHENSIVE METABOLIC PANEL Routine 05/08/2024 2:16 PM EST Weight loss HEPATITIS C ANTIBODY Routine 05/08/2024 2:16 PM EST Weight loss HM DEPRESSION SCREENING Routine 12/06/2023 LIPID PANEL Routine 06/28/2023 HM HPV Routine 08/01/2018 from Last 3 Months or Most Recently Relevant to Health Maintenance Results * CT Abdomen Pelvis wo Contrast [...] pelvic ultrasound in 6-8 weeks. POS - [id number] -------- FINAL REPORT -------- Dictated By: Sangita Ludwig Dictated Date: 05/18/2024 12:32 ET Assigned Physician: Sangita Ludwig Reviewed and Electronically Signed By: Sangita Ludwig Signed Date: 05/18/2024 23:52 ET Workstation ID: [id number] Transcribed By: Self Edit Transcribed Date: 05/18/2024 [...] deformities. Spina bifida occulta of T12 and S0ekwbq noted. No destructive bone lesion. IMPRESSION: Bilateral poorly defined centrilobular groundglass pulmonary nodules whichcan be seen with respiratory bronchiolitis. Hypersensitivity pneumonitisincluded in the differential. Few stable small bilateral pulmonary nodules. No evidence of an acute abdominal or pelvic process. 3.6 cm right ovarian cyst is probably physiologic. Recommend follow-uppelvic ultrasound in 6-8 weeks. POS - [id number] -------- FINAL REPORT -------- Dictated By: Sangita Ludwig Dictated Date: 05/18/2024 12:32 ET Assigned Physician: Sangita Ludwig Reviewed and Electronically Signed By: Sangita Ludwig Signed Date: 05/18/2024 23:52 ET Workstation ID: [id number] Transcribed By: Self Edit Transcribed Date: 05/18/2024 14:02 ET us Lisbeth Wade ETIENNE IMG CT PROCEDURES Final Result * CT Chest wo Contrast (05/18/2024 11:40 AM EST) Anatomical Region Laterality Modality Body [...] pelvic ultrasound in 6-8 weeks. POS - [id number] -------- FINAL REPORT -------- Dictated By: Sangita Ludwig Dictated Date: 05/18/2024 12:32 ET Assigned Physician: Sangita Ludwig Reviewed and Electronically Signed By: Sangita Ludwig Signed Date: 05/18/2024 23:52 ET Workstation ID: [id number] Transcribed By: Self Edit Transcribed Date: 05/18/2024 [...] deformities. Spina bifida occulta of T12 and K1ggvxd noted. No destructive bone lesion. IMPRESSION: Bilateral poorly defined centrilobular groundglass pulmonary nodules whichcan be seen with respiratory bronchiolitis. Hypersensitivity pneumonitisincluded in the differential. Few stable small bilateral pulmonary nodules. No evidence of an acute abdominal or pelvic process. 3.6 cm right ovarian cyst is probably physiologic. Recommend follow-uppelvic ultrasound in 6-8 weeks. POS - [id number] -------- FINAL REPORT -------- Dictated By: Sangita Ludwig Dictated Date: 05/18/2024 12:32 ET Assigned Physician: Sangita Ludwig Reviewed and Electronically Signed By: Sangita Ludwig Signed Date: 05/18/2024 23:52 ET Workstation ID: [id number] Transcribed By: Self Edit Transcribed Date: 05/18/2024 14:02 ET us Lisbeth Wade ETIENNE IMG CT PROCEDURES Final Result * Hepatitis C antibody (05/08/2024 2:16 PM EST) Hepatitis C Antibody Negative Negative LAB CHEMISTRY METHOD 05/08/2024 5:17 PM EST [facility] Blood Venous blood specimen / Unknown Venipuncture / Unknown 05/08/2024 2:16 PM EST 05/08/2024 2:16 PM EST us Lisbeth ETIENNE LAB BLOOD ORDERABLES Final Resul t Performing Organization Address [facility]/ZIP Co de Phone Number [facility] [address] [place] [address], [place] [phone] * HIV 1,2 antibody, p24 antigen with reflex to differentiation (05/08/2024 2:16 PM EST) [facility] HIV Combo AB/AG Negative Negative LAB CHEMISTRY METHOD 05/08/2024 5:18 PM EST [facility] Blood Venous blood specimen / Unknown Venipuncture / Unknown 05/08/2024 2:16 PM EST 05/08/2024 2:16 PM EST Narrative [facility] - 05/08/2024 5:18 PM EST This assay is a 4th generation assay allowing for earlier detection of HIV infection by detecting the presence of the HIV-1 p24 antigen as well as the traditional antibodies to HIV type 1 (including group O) and type 2. ??Use of a 4th generation assay is the current CDC recommendation for HIV screening. us Lisbeth ETIENNE LAB BLOOD ORDERABLES Final Resul t Performing Organization Address [facility] de Phone Number [facility] [address] [place] [address], [place] [phone] * CBC auto differential (05/08/2024 2:16 PM EST) [facility] WBC 6.4 4.8 - 10.8 K/mcL LAB HEMETOLOGY METHOD 05/08/2024 4:22 PM EST [facility] RBC 4.40 3.80 - 4.80 M/mcL LAB HEMETOLOGY METHOD 05/08/2024 4:22 PM EST [facility] Hemoglobin 13.5 11.5 - 16.0 g/dL LAB HEMETOLOGY METHOD 05/08/2024 4:22 PM [facility] Hematocrit 41.3 35.0 - 47.0 % LAB HEMETOLOGY METHOD 05/08/2024 4:22 PM [facility] MCV 94.7 79.0 - 98.0 FL LAB HEMETOLOGY METHOD 05/08/2024 4:22 PM [facility] MCH 31.0 27.0 - 32.0 pcg LAB HEMETOLOGY METHOD 05/08/2024 4:22 PM [facility] MCHC 32.7 32.0 - 37.0 g/dL LAB HEMETOLOGY METHOD 05/08/2024 4:22 PM [facility] RDW 13.9 11.0 - 15.0 % LAB HEMETOLOGY METHOD 05/08/2024 4:22 PM [facility] Platelets 323 130 - 400 K/mcL LAB HEMETOLOGY METHOD 05/08/2024 4:22 PM [facility] MPV 9.2 7.0 - 11.0 FL LAB HEMETOLOGY METHOD 05/08/2024 4:22 PM [facility] NRBC 0.0 <1.0 % LAB HEMETOLOGY METHOD 05/08/2024 4:22 PM [facility] NRBC Absolute 0.00 <0.10 K/mcL LAB HEMETOLOGY METHOD 05/08/2024 4:22 PM [facility] Neutrophils Relative 38.6 % LAB HEMETOLOGY METHOD 05/08/2024 4:22 PM [facility] Lymphocytes Relative 50.0 % LAB HEMETOLOGY METHOD 05/08/2024 4:22 PM [facility] Monocytes Relative 8.9 % LAB HEMETOLOGY METHOD 05/08/2024 4:22 PM [facility] Eosinophils Relative 1.7 % LAB HEMETOLOGY METHOD 05/08/2024 4:22 PM [facility] Basophils Relative 0.6 % LAB HEMETOLOGY METHOD 05/08/2024 4:22 PM [facility] Immature Granulocytes Relative 0.2 % LAB HEMETOLOGY METHOD 05/08/2024 4:22 PM [facility] Neutrophils Absolute 2.49 1.50 - 7.00 K/mcL LAB HEMETOLOGY METHOD 05/08/2024 4:22 PM [facility] Lymphocytes Absolute 3.22 1.00 - 5.00 K/mcL LAB HEMETOLOGY METHOD 05/08/2024 4:22 PM [facility] Monocytes Absolute 0.57 0.20 - 1.00 K/mcL LAB HEMETOLOGY METHOD 05/08/2024 4:22 PM [facility] Eosinophils Absolute 0.11 0.00 - 0.50 K/mcL LAB HEMETOLOGY METHOD 05/08/2024 4:22 PM [facility] Basophils Absolute 0.04 0.00 - 0.20 K/mcL LAB HEMETOLOGY METHOD 05/08/2024 4:22 PM [facility] Immature Granulocytes Absolute 0.01 0.00 - 0.03 K/mcL LAB HEMETOLOGY METHOD 05/08/2024 4:22 PM [facility] Blood Venous blood specimen / Unknown Venipuncture / Unknown 05/08/2024 2:16 PM EST 05/08/2024 2:16 PM EST us Lisbeth Wade ETIENNE LAB BLOOD ORDERABLES Final Resul t [facility] [address] [place] [address], * (ABNORMAL) Vitamin D 25 hydroxy (05/08/2024 2:16 PM EST) Vit D, 25-Hydroxy 7.9(L) 30.0 - 80.0 ng/mL LAB CHEMISTRY METHOD 05/08/2024 4:40 PM [facility] Blood Venous blood specimen / Unknown Venipuncture / Unknown 05/08/2024 2:16 PM EST 05/08/2024 2:16 PM EST us Lisbeth Wade ETIENNE LAB BLOOD ORDERABLES Final Resul t [facility] [address] [place] [address], [place] [phone] * (ABNORMAL) Comprehensive metabolic panel (05/08/2024 2:16 PM EST) Sodium 138 133 - 145 mmol/L LAB CHEMISTRY METHOD 05/08/2024 4:40 PM [facility] Potassium 4.8 3.5 - 5.5 mmol/L LAB CHEMISTRY METHOD 05/08/2024 4:40 PM [facility] Chloride 107 96 - 110 mmol/L LAB CHEMISTRY METHOD 05/08/2024 4:40 PM [facility] CO2 29 21 - 32 mmol/L LAB CHEMISTRY METHOD 05/08/2024 4:40 PM [facility] Anion Gap 2(L) 3 - 11 LAB CHEMISTRY METHOD 05/08/2024 4:40 PM [facility] Glucose 83 70 - 100 mg/dL LAB CHEMISTRY METHOD 05/08/2024 4:40 PM [facility] BUN 5 5 - 25 mg/dL LAB CHEMISTRY METHOD 05/08/2024 4:40 PM [facility] Creatinine 0.62 0.50 - 1.10 mg/dL LAB CHEMISTRY METHOD 05/08/2024 4:40 PM [facility] eGFR 118 >=60 mL/min/1. 73m2 LAB CHEMISTRY METHOD 05/08/2024 4:40 PM [facility] Comment:Calculation based on the??Chronic Kidney Disease Epidemiology Collaboration (CKD-EPI) equation refit??without adjustment for race. BUN/Creatinine Ratio 8.1 LAB CHEMISTRY METHOD 05/08/2024 4:40 PM [facility] Calcium 9.8 8.5 - 10.5 mg/dL LAB CHEMISTRY METHOD 05/08/2024 4:40 PM [facility] AST (SGOT) 9(L) 10 - 42 unit/L LAB CHEMISTRY METHOD 05/08/2024 4:40 PM [facility] ALT (SGPT) 21 10 - 60 unit/L LAB CHEMISTRY METHOD 05/08/2024 4:40 PM [facility] Alkaline Phosphatase 64 42 - 121 unit/L LAB CHEMISTRY METHOD 05/08/2024 4:40 PM [facility] Total Protein 6.8 6.0 - 8.0 g/dL LAB CHEMISTRY METHOD 05/08/2024 4:40 PM [facility] Albumin 3.6 3.2 - 5.0 g/dL LAB CHEMISTRY METHOD 05/08/2024 4:40 PM [facility] Total Bilirubin 0.3 0.0 - 1.4 mg/dL LAB CHEMISTRY METHOD 05/08/2024 4:40 PM [facility] Blood Venous blood specimen / Unknown Venipuncture / Unknown 05/08/2024 2:16 PM EST 05/08/2024 2:16 PM EST us Lisbeth ETIENNE LAB BLOOD ORDERABLES Final Resul t [facility] [address] [place] [address], * Depression Screening (12/06/2023) Pathologist [facility] Depression Screening Abstracted us Historical Provider MD HEALTH MAINTENANCE Final Result * (ABNORMAL) Lipid panel (06/28/2023) LDL/HDL Ratio 7(A) 0 - 4 Triglycerides 116 0 - 150 mg/dL Cholesterol 233(A) 0 - 200 mg/dL HDL 32(A) >=40 mg/dL LDL Cholesterol 178(A) 0 - 100 mg/dL Blood Venous blood specimen / Unknown Historical Provider LAB BLOOD ORDERABLES Rosibel l Result * Cervical Cancer Screening: HPV (08/01/2018) Pathologist [facility] Cervical Cancer Screening: HPV Abstracted ,Negative Historical Provider HEALTH MAINTENANCE Final Result from Last 3 Months or Most Recently Relevant to Health Maintenance Insurance [facility] [employer] Care Teams Collar Runner Relationship Specialty Start Date End Date Bubba Gautam MD [address] [place] [id number] PCP - General 01/15/06
--- OUTSIDE RECORDS SUMMARY | 2024-06-04 15:32 | XMS_ITS | Encounter Summary ---
Author Organization [facility] Address [address] [place] [phone] Care Team Providers Care Online Retailer Name Role Phone Bubba Gautam MD Primary Care Provider [phone] Reason for Referral * Imaging (Routine) - Closed Specialty Diagnoses / Procedures Referred By Esme henriquez Referred To Contact Radiology Diagnoses Weight loss Chronic cough Tobacco use disorder Procedures CT Chest wo Contrast Lisbeth Olvera PA [address] [place] [address] Phone: tel: fax: CT Scan - [address] Phone: tel: fax: Referral ID Status Reason Start Date Expiration Date Visits Re quested Visits Authorized [id number] Closed 05/12/2024 07/11/2024 1 1 Reason for Visit * Imaging (Routine) - Closed Specialty Diagnoses / Procedures Referred By Esme henriquez Referred To Contact Radiology Diagnoses Weight loss Chronic cough Tobacco use disorder Procedures CT Chest wo Contrast Lisbeth Olvera PA [address] [place] [address] Phone: tel: fax: CT Scan - [address] Phone: tel: fax: Referral ID Status Reason Start Date Expiration Date Visits Re quested Visits Authorized [id number] Closed 05/12/2024 07/11/2024 1 1 Encounter Details Date Type Department Care Team (Latest Contact Info) Description 05/18/2024 11:34 AM EST - 05/18/2024 11:59 PM [facility] Hospital [place] [address] Weight loss; Chronic cough; Tobacco use disorder Discharge Disposition: Home or Self Care Social [...] Record ed Within the last 3 months, antonia mcpherson many times did you visit the emergency [...] 11:30 AM EST Ancillary Procedure Pulmonolgy - [place] [address] [phone] Christine Morales 06/09/2024 3:20 PM EST Office Visit Gastroenterology - [address] [phone] Mary Marin, [facility] [address] [address] 06/11/2024 10:00 AM EST Consult Pulmonolgy - [place] [address] [phone] Larissa Cox MD [address] [address] 06/30/2024 3:30 PM EDT Appointment Radiology Department - [address] [phone] 07/07/2024 11:30 AM EDT Office Visit Adult Medicine [address] [phone] Nikky Arredondo PA [address] [place] [address] documented as of this encounter Procedures Procedure Name Priority Date/Time Associated Diagnosis Comments CT CHEST WO CONTRAST Routine 05/18/2024 11:40 AM EST Weight loss Chronic cough Tobacco use disorder documented in this encounter Results * CT Chest wo Contrast (05/18/2024 11:40 [...] pelvic ultrasound in 6-8 weeks. POS - [id number] -------- FINAL REPORT -------- Dictated By: Sangita Ludwig Dictated Date: 05/18/2024 12:32 ET Assigned Physician: Sangita Ludwig Reviewed and Electronically Signed By: Sangita Ludwig Signed Date: 05/18/2024 23:52 ET Workstation ID: [id number] Transcribed By: Self Edit Transcribed Date: 05/18/2024 [...] deformities. Spina bifida occulta of T12 and B6npjfc noted. No destructive bone lesion. IMPRESSION: Bilateral poorly defined centrilobular groundglass pulmonary nodules whichcan be seen with respiratory bronchiolitis. Hypersensitivity pneumonitisincluded in the differential. Few stable small bilateral pulmonary nodules. No evidence of an acute abdominal or pelvic process. 3.6 cm right ovarian cyst is probably physiologic. Recommend follow-uppelvic ultrasound in 6-8 weeks. POS - [id number] -------- FINAL REPORT -------- Dictated By: Sangita Ludwig Dictated Date: 05/18/2024 12:32 ET Assigned Physician: Sangita Ludwig Reviewed and Electronically Signed By: Sangita Ludwig Signed Date: 05/18/2024 23:52 ET Workstation ID: [id number] Transcribed By: Self Edit Transcribed Date: 05/18/2024 14:02 ET us Lisbeth ETIENNE IMG CT PROCEDURES Final Result documented in this encounter Visit Diagnoses Diagnosis Weight loss Loss of weight Chronic cough Cough Tobacco use disorder documented in this encounter Care Teams Online Retailer Relationship Specialty Start Date End Date Bubba Gautam MD [address] [place] [address], [place] [address] PCP - General 01/15/06 documented as of this encounter
--- OUTSIDE RECORDS SUMMARY | 2024-06-04 15:32 | XMS_ITS | Patient Health Record ---
Author Organization [facility] Address [address] [place] [address] Support Name Relationship Address Phone Dain Mac Emergency Contact [address] [place] [address] Kennsincere Linda Guarantor Unknown Reason For Referral [...] Insured Coverage Start Date Coverage End Date [facility] [employer] [employer] [address] [address] [id number] Linda Nicole Self - patient is the insured Medical (General) History Surgical History Surgery Date(Month/Year) The patient has had no prior surgeries The patient has had no prior surgeries 2013-06-16
--- OUTSIDE RECORDS SUMMARY | 2024-06-04 15:32 | XMS_ITS | Encounter Summary ---
Author Organization [facility] Address [address] [place] [id number] Care Team Providers Care Curve Saw Operator Name Role Phone Bubba Gautam MD Primary Care Provider [phone] Reason for Referral * Imaging (Routine) - Closed Specialty Diagnoses / Procedures Referred By Esme henriquez Referred To Contact Radiology Diagnoses Weight loss Chronic cough Tobacco use disorder Procedures CT Chest wo Contrast Lisbeth Olvera PA [address] [place] [address] Phone: tel: fax: CT Scan - [address] Phone: tel: fax: Referral ID Status Reason Start Date Expiration Date Visits Re quested Visits Authorized [id number] Closed 05/12/2024 07/11/2024 1 1 * Imaging (Routine) - Closed Specialty Diagnoses / Procedures Referred By Esme henriquez Referred To Contact Radiology Diagnoses Weight loss Lower abdominal pain Procedures CT Abdomen Pelvis wo Contrast Lisbeth Olvera PA [address] [place] [address] Phone: tel: fax: CT Scan - [address] Phone: tel: fax: Referral ID Status Reason Start Date Expiration Date Visits Re quested Visits Authorized [id number] Closed 05/12/2024 07/11/2024 1 1 * Consultation (Routine) - Authorized Specialty Diagnoses / Procedures Referred By Esme henriquez Referred To Contact Gastroenterology Diagnoses Lower abdominal pain Lisbeth Olvera PA [address] [place], [place] Phone: tel: fax: Gastroenterology [facility] [address] [place] [address] Phone: tel: fax: Referral ID Status Reason Start Date Expiration Date Visits Requested Visits Authorized [id number] Authorized Specialty Services Required 05/08/2024 05/08/2025 1 1 Reason for Visit * Reason Comments medication review Encounter Details Date Type Department Care Team (Late st Contact Info) Description 05/08/2024 12:45 PM EST Office Visit Adult Medicine [address] [phone] Lisbeth Olvera PA [address] [place] [address] Weight loss (Primary Dx); Chronic cough; Tobacco use disorder; Vitamin D deficiency; Lower abdominal pain; Diarrhea, unspecified type; Chalazion left lower eyelid Social History Tobacco Use Types Packs/Day Years [...] for your loved ones. For example, child support investigator or elderly care for an older adult? [...] on file documented as of this encounter Last Filed Vital Signs Vital Sign Reading [...] Mass Index 24.07 05/08/2024 1:14 PM EST documented in this encounter Progress Notes * JAIMIE Mcguire - 05/08/2024 12:45 PM EST CHIEF COMPLAINT: medication review IDENTIFIER: Linda Nicole is a 38 y.o. old female. HPI: Patient is a 38-year-old female who presents to the office today for follow-up on weight loss. She had an appointment with her PCP recently but it was canceled. Patient reports she was 150 pounds a year ago. She was 136 pounds back in June 2023. She lost additional weight and when she saw Dr. Gautam in November 2023, she weighed 135 pounds. She has been seeing a tattoo designer. She eats 1 meal daily, states that she cannot eat more than 1 meal due to nausea. Sofar workup has included chest x-ray which was negative, ESR, CBC, CMP and TSH which were unremarkable. She did endorse rectal bleeding and had an endoscopy, colonoscopy which was notable for hemorrhoid and small hiatal hernia. She follows psychiatry for depression which is not controlled but patient states that has not been controlled for many years now. She smokes 2 pack of cigarettes daily. Shehas tried several medications without help. She has been experiencing diarrhea x 1 month which is new. She also complains of a left lower eyelid stye which comes and goes. She has vitamin D deficiency. Patient reports that her psychiatrist did the lab but did not treat her. ROS: GENERAL: See HPI HEENT: See HPI NECK: No lumps, goiter, pain or significant neck swelling RESPIRATORY: No cough, wheezing or shortness of breath CARDIOVASCULAR: No chest pain, leg swelling or palpitations GI: See HPI NEURO: No persistent headache PSYCH: See HPI PAST MEDICAL HISTORY: Patient Active Problem List Diagnosis Date Noted Chronic constipation 11/30/2016 Migraine 08/16/2008 Tobacco use disorder 12/03/2006 Past Surgical History: Procedure Laterality Date CERVICAL BIOPSY W/ LOOP ELECTRODE EXCISION 07/10/2012 PROCEDURE: IL CONIZATION CERVIX W/WO D&C RPR ELTRD EXC; COMMENT: VALDO 3 FLEXIBLE SIGMOIDOSCOPY 01/06/2007 PROCEDURE: IL SIGMOIDOSCOPY FLX DX W/COLLJ SPEC BR/WA IF PFRMD; COMMENT: internal and external hemorrhoids SOCIAL HISTORY: Social History Tobacco Use Smoking status: Every Day Smokeless tobacco: Current Substance Use Topics Alcohol use: No FAMILY HISTORY: Family History Problem Relation Name Age of Onset Breast cancer Mother age 40's/unilateral; skin cancer (?type); depression Cirrhosis Father hepatitis/EtOH abuse Other (Other: PCOS) Sister x 3 brain cysts? Suicide Attempts Maternal Grandmother Heart attack Maternal Grandfather Other (Other: COVID-19) Paternal Grandmother Heart attack Paternal Grandfather MEDICATIONS DISCONTINUED/REORDERED: Medications Discontinued During This Encounter Medication Reason lithium 150 mg capsule Patient Discharge nicotine (NICODERM CQ) 21 mg/24 hr Patient Discharge nicotine polacrilex (COMMIT) 4 mg lozenge Patient Discharge ACTIVE MEDICATIONS: Outpatient Medications Marked as Taking for the 05/08/24 encounter (Office Visit) with JAIMIE Mcguire Medication Sig Dispense Refill buprenorphine-naloxone (Suboxone) 8-2 mg per SL film TAKE 2 FILMS SUBLINGUALLY EVERY DAY desvenlafaxine 50 mg tablet extended release 24 hr Take 50 mg by mouth daily. omeprazole (PriLOSEC) [address] capsule TAKE 1 CAPSULE BY MOUTH DAILY FOR 360 DAYS. 90 capsule 0 SUMAtriptan (IMITREX) 50 mg tablet May repeat dose once after 2 hours, if needed. ALLERGIES: Allergies Allergen Reactions Amoxicillin Itching Azithromycin Wheezing Other Reaction(s): OTHER CHEST TIGHTNESS,ABDOMINAL CRAMPS PHYSICAL EXAM: Blood pressure 100/60, pulse 106, temperature 36.4 ??C (97.6 ??F), temperature source Temporal, resp. rate 15, height 1.549 m (61 ), weight 57.8 kg (127 lb 6.4 oz). Body mass index is 24.07 kg/m??. BMI is 18.5 to 24.9 (within the normal range) and will be followed APPEARANCE: Alert and in no acute distress EYES: Non tender left upper eyelid chalazion HEART: RRR with normal S1 and S2, no murmurs, no gallops LUNG: Clear to auscultation ABDOMEN: Bowel sounds normoactive, soft, non-tender, without organomegaly or palpable masses EXTREMITIES: No edema NEURO: Awake, alert LABS: Component Latest Ref Rng & Units 06/28/2023 06/28/2023 06/28/2023 1:47 PM 1:47 PM 1:47 PM White Blood Cell Count 4.8 - 10.8 x10-3/uL 7.0 RBC 3.8 - 4.8 x10-6/uL 4.1 Hemoglobin 11.5 - 16.0 g/dL 12.7 Hematocrit 35 - 47 % 38.2 MCV 79 - 98 fL 92.7 MEAN CORPUSCULAR HEMOGLOBIN 27 - 32 pg 30.8 MCHC 32 - 37 g/dL 33.2 RED CELL DISTRIBUTION WIDTH 11 - 15 % 14.0 Platelet Count 130 - 400 x10-3/uL 334 MPV 7 - 11 fL 9.1 NRBC % AUTO <1 % 0.0 NEUTROPHILS % 43.5 LYMPHOCYTES % 46.6 MONO % % 7.6 EOSINOPHILS % 1.6 BASO % % 0.6 IMMATURE GRANULOCYTES % % 0.1 NRBC # AUTO <0.1 x10-3/uL 0.00 NEUT # 1.5 - 7.0 x10-3/uL 3.02 LYMPH # 1 - 5.0 x10-3/uL 3.24 MONO # 0.2 - 1.0 x10-3/uL 0.53 EOS # 0 - 0.5 x10-3/uL 0.11 BASO # 0 - 0.2 x10-3/uL 0.04 IMMATURE GRANULOCYTES # 0 - 0.03 x10-3/uL 0.01 SED RATE BY MODIFIED WESTERGREN 0 - 20 mm/hr GLUCOSE, PLASMA 70 - 100 mg/dL 94 Blood Urea Nitrogen 5 - 25 mg/dL 5 creatinine 0.5 - 1.1 mg/dL 0.65 GLOMERULAR FILTRATION RATE >60 117 NA (WB) 135 - 145 mEq/L 142 K 3.5 - 5.5 mmol/L 3.9 Chloride 96 - 110 mmol/L 105 CARBON DIOXIDE 21 - 32 mmol/L 30 ANION GAP 3 - 11 7 CALCIUM 8.5 - 10.5 mg/dL 9.1 PROTEIN, TOTAL 6.0 - 8.0 G/dL 6.8 Albumin 3.2 - 5.0 G/dL 3.7 AST (SGOT) 10 - 42 U/L 10 ALT (SGPT) 10 - 60 U/L 16 Bilirubin, total 0.0 - 1.4 mg/dL 0.3 Alk Phos 42 - 121 U/L 75 Cholesterol 0 - 200 mg/dL 233 (H) TRIGLYCERIDES 0 - 150 mg/dL 116 HDL >40 mg/dL 32 (L) LDL 0 - 100 mg/dL 178 (H) TC-HDLC RATIO 0 - 4.4 mg/dL 7.3 (H) Component Latest Ref Rng & Units 06/28/2023 06/28/2023 1:47 PM 1:47 PM SED RATE BY MODIFIED WESTERGREN 0 - 20 mm/hr 9 TSH 0.40 - 4.00 uIU/ml 1.42 IMAGING: RADIOLOGIC EXAM CHEST 2 VIEWS Exam Date: 06/28/2023 HISTORY: cough and weigh loss TECHNIQUE: PA and lateral radiographs of the chest COMPARISON: Chest radiograph from 02/15/2017 FINDINGS: There is a normal cardiomediastinal silhouette. The lungs are clear. The osseous structures are intact. IMPRESSION: No acute cardiopulmonary process. IMPRESSION/PLAN: 1. Weight loss CBC and differential Comprehensive metabolic panel CT Abdomen Pelvis wo Contrast CT Chest wo Contrast HIV 1,2 antibody, p24 antigen with reflex to differentiation Hepatitis C antibody 2. Chronic cough CT Chest wo Contrast 3. Tobacco use disorder CT Chest wo Contrast 4. Vitamin D deficiency Vitamin D 25 hydroxy 5. Lower abdominal pain Ambulatory referral to Gastroenterology CT Abdomen Pelvis wo Contrast 6. Diarrhea, unspecified type 7. Chalazion left lower eyelid Medication and lab orders: Orders Placed This Encounter Procedures CT Abdomen Pelvis wo Contrast CT Chest wo Contrast Vitamin D 25 hydroxy CBC and differential Comprehensive metabolic panel HIV 1,2 antibody, p24 antigen with reflex to differentiation Hepatitis C antibody Ambulatory referral to Gastroenterology Other orders: AMB REFERRAL TO GASTROENTEROLOGY CT ABDOMEN PELVIS WO CONTRAST CT CHEST WO CONTRAST Weight loss. Today she is 127 pounds, at her last office visit 6 months ago she was 135 pounds. Shewas 150 pounds a year ago. She eats 1 meal daily, states that she cannot eat more than 1 meal due to nausea. So far workup has included chest x-ray, ESR, CBC, CMP and TSH which were unremarkable. Shehad endoscopy, colonoscopy which was notable for hemorrhoid and small hiatal hernia. She complains of lower abdominal pain, diarrhea x 1 month. Will refer to gastroenterology for further evaluation. Will update labs, include HIV and hep C screen. Will order CT scan of the chest, abdomen and pelvis.She is a cigarette smoker, 2 PPD. Follow-up with PCP in 3 months. Advised patient to discuss mirtazapine with psychiatry which may help with appetite, depression. Vitamin D deficiency, will update lab. Chalazion of the left lower eyelid. No active infection. Advised patient to follow-up with her eyedoctor. I have spent 45 minutes during this encounter including preparing to see the patient, reviewing labs and imaging from [facility], performing a medically appropriate examination, extensive counseling/education, discussing benefits/side effects of pharmacologic theraputic options and documenting clin ical information in the electronic health record. None of this time was spent on separate billable services or procedures. Advised the patient to call me if any problems. Patient understands the plan. Patient is in agreement with the plan. Today's documentation was made using voice recognition software.This note may contain grammatical errors secondary to this software. Lisbeth Olvera PA-C * Viviana Jenkins MA - 05/08/2024 12:45 PM EST Social Influencers of Health Who provided answers?: Self Within the past 12 months we worried whether our food would run out before we got money to buy more.: Never true Within the past 12 months the food we bought just didn't last and we didn't have money to get more.: Never true How hard is it for you to pay for the very basics like food, housing, medical care, and air conditioning / heating?: Not very hard Are you worried that in the next 2 months you may not have stable housing?: No Do you have access to a variety of food including fruits and vegetables?: Yes Within the last 3 months, how many times did you visit the emergency department for your medical care?: 0 Has the lack of transportation kept you from meetings, work, or from getting things needed for daily living?: No Has the lack of transportation kept you from medical appointments or from getting medications?: No How often do you feel lonely or isolated from those around you?: Never How often do you need to have someone help you when you read instructions, pamphlets, or other written material from your doctor or pharmacy?: Never documented in this encounter Plan of Treatment Upcoming Encounters Date Type Department Care Team (Late st Contact Info) Description 06/08/2024 11:30 AM EST Ancillary Procedure Pulmonolgy - Tell [address] [phone] Christine Morales 06/09/2024 3:20 PM EST Office Visit Gastroenterology - [address] [phone] Mary Marin NP [address] [address] 06/11/2024 10:00 AM EST Consult [address] [phone] Larissa Cox MD [address] [address] 06/30/2024 3:30 PM EDT Appointment Radiology Department - [address] [phone] 07/07/2024 11:30 AM EDT Office Visit Adult Medicine [address] [phone] Nikky Arredondo PA [address] [place] [address] Scheduled Referrals Name Type Priority Associated Diagnoses Order Schedule Ambulatory referral to Gastroenterology Outpatient Referral Routine Lower abdominal pain 1 Occurrences starting 05/08/2024 until 05/08/2025 documented as of this encounter Results * CT Abdomen Pelvis [...] pelvic ultrasound in 6-8 weeks. POS - [id number] -------- FINAL REPORT -------- Dictated By: Sangita Ludwig Dictated Date: 05/18/2024 12:32 ET Assigned Physician: Sangita Ludwig Reviewed and Electronically Signed By: Sangita Ludwig Signed Date: 05/18/2024 23:52 ET Workstation ID: [id number] Transcribed By: Self Edit Transcribed Date: 05/18/2024 [...] deformities. Spina bifida occulta of T12 and Q1abery noted. No destructive bone lesion. IMPRESSION: Bilateral poorly defined centrilobular groundglass pulmonary nodules whichcan be seen with respiratory bronchiolitis. Hypersensitivity pneumonitisincluded in the differential. Few stable small bilateral pulmonary nodules. No evidence of an acute abdominal or pelvic process. 3.6 cm right ovarian cyst is probably physiologic. Recommend follow-uppelvic ultrasound in 6-8 weeks. POS - [id number] -------- FINAL REPORT -------- Dictated By: Sangita Ludwig Dictated Date: 05/18/2024 12:32 ET Assigned Physician: Sangita Ludwig Reviewed and Electronically Signed By: Sangita Ludwig Signed Date: 05/18/2024 23:52 ET Workstation ID: [id number] Transcribed By: Self Edit Transcribed Date: 05/18/2024 14:02 ET us Lisbeth ETIENNE IMAd CT PROCEDURES Final Result * CT Chest [...] pelvic ultrasound in 6-8 weeks. POS - [id number] -------- FINAL REPORT -------- Dictated By: Sangita Ludwig Dictated Date: 05/18/2024 12:32 ET Assigned Physician: Sangita Ludwig Reviewed and Electronically Signed By: Sangita Ludwig Signed Date: 05/18/2024 23:52 ET Workstation ID: [id number] Transcribed By: Self Edit Transcribed Date: 05/18/2024 [...] deformities. Spina bifida occulta of T12 and W9ftuun noted. No destructive bone lesion. IMPRESSION: Bilateral poorly defined centrilobular groundglass pulmonary nodules whichcan be seen with respiratory bronchiolitis. Hypersensitivity pneumonitisincluded in the differential. Few stable small bilateral pulmonary nodules. No evidence of an acute abdominal or pelvic process. 3.6 cm right ovarian cyst is probably physiologic. Recommend follow-uppelvic ultrasound in 6-8 weeks. POS - [id number] -------- FINAL REPORT -------- Dictated By: Sangita Ludwig Dictated Date: 05/18/2024 12:32 ET Assigned Physician: Sangita Ludwig Reviewed and Electronically Signed By: Sangita Ludwig Signed Date: 05/18/2024 23:52 ET Workstation ID: [id number] Transcribed By: Self Edit Transcribed Date: 05/18/2024 14:02 ET Lisbeth Wade ETIENNE IMG CT PROCEDURES Final Result * Hepatitis C antibody (05/08/2024 2:16 PM EST) [facility] Hepatitis C Antibody Negative Negative LAB CHEMISTRY METHOD 05/08/2024 5:17 PM EST [facility] Blood Venous blood specimen / Unknown Venipuncture / Unknown 05/08/2024 2:16 PM EST 05/08/2024 2:16 PM EST Lisbeth Wade ETIENNE LAB BLOOD ORDERABLES Final Resul t [facility] [address] [place] [address], [place] [phone] * HIV 1,2 antibody, p24 antigen with reflex to differentiation (05/08/2024 2:16 PM EST) Pathologist [facility] HIV Combo AB/AG Negative Negative LAB CHEMISTRY METHOD 05/08/2024 5:18 PM EST [facility] Blood Venous blood specimen / Unknown Venipuncture / Unknown 05/08/2024 2:16 PM EST 05/08/2024 2:16 PM EST [facility] - 05/08/2024 5:18 PM EST This assay is a 4th generation assay allowing for earlier detection of HIV infection by detecting the presence of the HIV-1 p24 antigen as well as the traditional antibodies to HIV type 1 (including group O) and type 2. ??Use of a 4th generation assay is the current CDC recommendation for HIV screening. us Lisbeth Wade ETIENNE LAB BLOOD ORDERABLES Final Resul t [facility] [address] [place] [address], * (ABNORMAL) Comprehensive metabolic panel (05/08/2024 2:16 PM EST) Sodium 138 133 - 145 mmol/L LAB CHEMISTRY METHOD 05/08/2024 4:40 PM [facility] Potassium 4.8 3.5 - 5.5 mmol/L LAB CHEMISTRY METHOD 05/08/2024 4:40 PM [facility] Chloride 107 96 - 110 mmol/L LAB CHEMISTRY METHOD 05/08/2024 4:40 PM [facility] CO2 29 21 - 32 mmol/L LAB CHEMISTRY METHOD 05/08/2024 4:40 PM [facility] Anion Gap 2(L) 3 - 11 LAB CHEMISTRY METHOD 05/08/2024 4:40 PM [facility] Glucose 83 70 - 100 mg/dL LAB CHEMISTRY METHOD 05/08/2024 4:40 PM [facility] BUN 5 5 - 25 mg/dL LAB CHEMISTRY METHOD 05/08/2024 4:40 PM [facility] Creatinine 0.62 0.50 - 1.10 mg/dL LAB CHEMISTRY METHOD 05/08/2024 4:40 PM [facility] eGFR 118 >=60 mL/min/1. 73m2 LAB CHEMISTRY METHOD 05/08/2024 4:40 PM [facility] Comment:Calculation based on the??Chronic Kidney Disease Epidemiology Collaboration (CKD-EPI) equation refit??without adjustment for race. BUN/Creatinine Ratio 8.1 LAB CHEMISTRY METHOD 05/08/2024 4:40 PM [facility] Calcium 9.8 8.5 - 10.5 mg/dL LAB CHEMISTRY METHOD 05/08/2024 4:40 PM [facility] AST (SGOT) 9(L) 10 - 42 unit/L LAB CHEMISTRY METHOD 05/08/2024 4:40 PM [facility] ALT (SGPT) 21 10 - 60 unit/L LAB CHEMISTRY METHOD 05/08/2024 4:40 PM [facility] Alkaline Phosphatase 64 42 - 121 unit/L LAB CHEMISTRY METHOD 05/08/2024 4:40 PM [facility] Total Protein 6.8 6.0 - 8.0 g/dL LAB CHEMISTRY METHOD 05/08/2024 4:40 PM [facility] Albumin 3.6 3.2 - 5.0 g/dL LAB CHEMISTRY METHOD 05/08/2024 4:40 PM [facility] Total Bilirubin 0.3 0.0 - 1.4 mg/dL LAB CHEMISTRY METHOD 05/08/2024 4:40 PM [facility] Blood Venous blood specimen / Unknown Venipuncture / Unknown 05/08/2024 2:16 PM EST 05/08/2024 2:16 PM EST us Lisbeth ETIENNE LAB BLOOD ORDERABLES Final Resul t [facility] [address] [place] [address], * (ABNORMAL) Vitamin D 25 hydroxy (05/08/2024 2:16 PM EST) Vit D, 25-Hydroxy 7.9(L) 30.0 - 80.0 ng/mL LAB CHEMISTRY METHOD 05/08/2024 4:40 PM EST [facility] Blood Venous blood specimen / Unknown Venipuncture / Unknown 05/08/2024 2:16 PM EST 05/08/2024 2:16 PM EST us Lisbeth Wade ETIENNE LAB BLOOD ORDERABLES Final Resul t [facility] [address] [place] [address], documented in this encounter Visit Diagnoses Diagnosis Weight loss- Primary Loss of weight Chronic cough Cough Tobacco use disorder Vitamin D deficiency Lower abdominal pain Abdominal pain, other specified site Diarrhea, unspecified type Chalazion left lower eyelid Weight loss Loss of weight Lower abdominal pain Abdominal pain, other specified site Weight loss Loss of weight Chronic cough Cough Tobacco use disorder documented in this encounter Discontinued Medications Medication Sig Discontinue Reason Start Date End Da te lithium 150 mg capsule TAKE 1 CAPSULE BY MOUTH EVERY NIGHT AT BEDTIME. Patient Discharge 11/29/2023 05/08/2024 nicotine (NICODERM CQ) 21 mg/24 hr APPLY 1 PATCH EVERY DAY BY TRANSDERMAL ROUTE FOR 28 DAYS. Patient Discharge 08/20/2023 05/08/2024 nicotine polacrilex (COMMIT) 4 mg lozenge TAKE 1 LOZENGE BY MOUTH EVERY 2 HOURS Patient Discharge 08/20/2023 05/08/2024 documented as of this encounter Care Teams Curve Saw Operator Relationship Specialty Start Date End Date Bubba Gautam MD [address] [place] [id number] PCP - General 01/15/06 documented as of this encounter
== END 2024-06-04 13:27 | disposition home or self-care (01) ==
PROVIDERS: PCP Internal Medicine; Visit Provider Dietitian, Registered
DX: R63.4 Abnormal weight loss (principal)

== ENCOUNTER → 2024-06-04 13:02 | Outpatient (BNVA) | payer OTHER, SELFPAY | PROVIDERS: PCP Internal Medicine; Visit Provider Dietitian, Registered | DX: R63.4 Abnormal weight loss (principal) | CPT/HCPCS: 97803 ==